=== PATIENT | male | born 1990 | race Caucasian/White ===

== ENCOUNTER 2023-11-18 19:54 | Emergency (ER) | payer MEDICAID ==
[~2023-11-18] VITALS: Ht 172.7 cm; Wt 73.5 kg
[2023-11-18] MEDS ORDERED: colchicine PO (20:09)
[2023-11-18] MEDS ORDERED: IBUPROFEN 600 MG TABLET ONE (20:19)
[2023-11-18] MEDS: IBUPROFEN 600 MG TABLET PO ONE (20:21)
[2023-11-18 20:33] LABS: BASOPHILS # (AUTO) 0.1 K/UL (0.0-0.2); BASOPHILS % (AUTO) 0.8 % (0.0-2.0); EOSINOPHILS # (AUTO) 0.1 K/uL (0.0-0.7); EOSINOPHILS % (AUTO) 0.9 % (0.0-7.0); HEMATOCRIT 43.2 % (36.7-47.1); HEMOGLOBIN 14.3 g/dL (12.5-16.3); LYMPHOCYTES # (AUTO) 1.1 K/uL (0.8-4.8); LYMPHOCYTES % (AUTO) 9.7 % (20.5-51.5); MEAN CORPUSCULAR HEMOGLOBIN 29.8 uug (23.8-33.4); MEAN CORPUSCULAR HGB CONC 33 g/dL (32.5-36.3); MEAN CORPUSCULAR VOLUME 89.7 fL (73.0-96.2); MONOCYTES # (AUTO) 0.6 K/uL (0.1-1.30); MONOCYTES % (AUTO) 5.4 % (0.0-11.0); NEUTROPHILS # (AUTO) 9.7 K/uL (1.8-8.9); NEUTROPHILS % (AUTO) 83.2 % (38.5-71.5); PLATELET COUNT (AUTO) 158 K/uL (152-348); RED BLOOD CELL COUNT(AUTO) 4.82 MIL/uL (4.06-5.63); WHITE BLOOD COUNT (AUTO) 11.7 K/uL (3.6-10.2)
[2023-11-18 20:34] LABS: DIFFERENTIAL COMMENT 1
[2023-11-18 20:41] LABS: CALCIUM 8.9 mg/dL (8.5-10.1); CREATININE 1.1 mg/dL (0.6-1.3)
[2023-11-18 20:47] LABS: ALBUMIN 3.9 g/dL (3.4-5.0); BILIRUBIN,TOTAL 0.5 mg/dL (0.2-1.0); TOTAL PROTEIN, SERUM 7.4 g/dL (6.4-8.2)
[2023-11-18 20:49] LABS: C-REACTIVE PROTEIN 1.05 mg/dL (0.00-0.30)
[2023-11-18] MEDS ORDERED: HYDR-4209 PO ×2 (21:54→21:56)
[2023-11-18] MEDS ORDERED: IBUP-1955 PO (21:54)
[2023-11-18] MEDS ORDERED: HYDROCODONE/APAP 5-325MG TABLET ONE (21:55)
[2023-11-18] MEDS: HYDROCODONE/APAP 5-325MG TABLET PO ONE (21:58)
[2023-11-18 22:06] VITALS: BP 124/75; TEMP 98.6; O2SAT 97
== END 2023-11-18 22:10 | disposition home or self-care (01) ==
LOC: ER 19:56
DX: R07.89 Other chest pain (principal); R09.1 Pleurisy; M04.1 Periodic fever syndromes; Z79.1 Long term (current) use of non-steroidal anti-inflammatories (NSAID); Z79.891 Long term (current) use of opiate analgesic
CPT/HCPCS: 36415; 71045; 84484; 85025; 86140; 93005; A4606; A4663